=== PATIENT | female | born 1960 | race Caucasian/White ===

== ENCOUNTER 2017-02-23 09:55 | Emergency (ER) | payer BC ==
[2017-02-23 10:01] VITALS: BP 135/78; PULSE 73; RESP 16; TEMP 97.1
--- NOTE | 2017-02-23 10:29 | ED ---
General Adult HPI - General Chief complaint: Neuro Symptoms/Deficit Stated complaint: FACE TINGLING Time Seen by Provider: 02/23/17 10:14 Source: patient Mode of arrival: ambulatory Limitations: no limitations - History of Present Illness Initial comments: 86-year-old white female presents complaining of some bilateral facial numbness and tingling. She states that it came on this morning. She feels as though she has a head cold. She's had some congestion in her years. She has had some mild stiffness in her neck. She denies any nasal drainage, sore throat, ear pain, fever, or chills. She denies any other neurologic symptoms such as problems with walking, problems with talking, vision problems, weakness, or extremity numbness. She states that she watches her grandchild and they have been sick recently and thinks she may have caught something. She has had a mild headache over the last couple of days which is diffuse in nature. She denies any previous similar incidents. No other complaints or modifying factors. - Related Data Home Medications Medication Instructions Recorded Confirmed Venlafaxine HCl ER [Effexor Xr] 75 mg PO DAILY 01/16/15 01/16/15 Previous Rx's Medication Instructions Recorded Amoxicillin 500 mg PO Q8H #30 capsule 02/23/17 Allergies Allergy/AdvReac Type Severity Reaction Status Date / Time No Known Allergies Allergy Verified 02/23/17 10:01 Review of Systems ROS Statement: Those systems with pertinent positive or pertinent negative responses have been documented in the HPI. ROS Other: All systems not noted in ROS Statement are negative. Past Medical History Past Medical History: No Reported History History of Any Multi-Drug Resistant Organisms: None Reported Past Surgical History: No Surgical Hx Reported Past Psychological History: Anxiety Smoking Status: Current every day smoker Past Alcohol Use History: Occasional Past Drug Use History: None Reported General Exam - General Exam Comments Initial Comments: GENERAL: The patient is well nourished and well hydrated. VITAL SIGNS: Heart rate, blood pressure, respiratory rate reviewed as recorded in nurse's notes. EYES: Pupils are round and reactive. Extraocular movements are intact. No conjunctival / lid redness or swelling. ENT: No external evidence of injury, swelling, or ecchymosis. Airway is patent. Throat is clear. Tympanic membranes are clear. NECK: Nontender. No swelling or evidence of injury. No subcutaneous emphysema. Trachea is midline. No thyroid mass. HEART: Regular rate and rhythm. Good peripheral pulses. LUNGS/CHEST: Breath sounds clear and equal bilaterally. No rales, rhonchi, or wheezes. No ecchymosis, subcutaneous emphysema, or tenderness. ABDOMEN: Abdomen soft without tenderness. No palpable masses or organomegaly. No peritoneal signs. No abdominal wall swelling or ecchymosis. EXTREMITIES: No extremity tenderness. Normal muscle tone and function. No thoracolumbar tenderness. NEUROLOGIC: There is some subjective numbness throughout the face bilaterally. Cranial nerve exam reveals face is symmetrical, tongue is midline, speech is clear. No gross sensory or motor deficits otherwise noted. SKIN: No abrasions or ecchymosis is noted. No induration or masses noted. PSYCHIATRIC: Alert and oriented. Appropriate behavior and judgment. Limitations: no limitations Course Vital Signs 02/23/17 09:59 Temperature 97.1 F L Pulse Rate 73 Respiratory 16 Rate Blood Pressure 135/78 O2 Sat by Pulse 98 Oximetry Medical Decision Making - Medical Decision Making The patient is seen and examined. She does have somewhat nebulous symptoms. The exact cause is not definitively determined. She is offered full workup including computed tomography scan, IV, IV medications, and laboratory evaluation. She refuses these treatments and workup. She would prefer to be treated for possible sinusitis. She, however, is agreeable to return if her symptoms do not improve or if they worsen in the next couple of days. She leaves in no identifiable distress. Risks and benefits of her decision are discussed in detail. Return parameters are discussed. Disposition Clinical Impression: Paresthesia, Sinusitis Disposition: HOME SELF-CARE Condition: Good Instructions: Paresthesia (ED), Sinusitis (ED) Additional Instructions: The also may take Mucinex DM [id number] medication. Prescriptions: Amoxicillin 500 mg PO Q8H #30 capsule Referrals: Daren Peralta DO [Primary Care Provider] - 1-2 days Time of Disposition: 10:28
== END 2017-02-23 10:52 | disposition home or self-care (01) ==
LOC: EC 09:55
DX: R20.2 Paresthesia of skin (principal); J32.9 Chronic sinusitis, unspecified; F41.9 Anxiety disorder, unspecified; F17.200 Nicotine dependence, unspecified, uncomplicated; Z79.899 Other long term (current) drug therapy
CPT/HCPCS: 99283

== ENCOUNTER → 2018-10-12 | Outpatient (CLI) | payer BC ==
--- NOTE | 2018-10-12 15:45 | XR ---
EXAMINATION TYPE: XR chest 2V DATE OF EXAM: 10/12/2018 COMPARISON: Prior chest x-ray 01/16/2015 HISTORY: Cough, tobacco abuse TECHNIQUE: Frontal and lateral views of the chest are obtained. FINDINGS: There is abnormal density present in the right middle lobe not seen on prior exam which is below appreciated measuring approximately 4cm in size. There is a spinal curvature present. Prominen t lung volumes suggest underlying COPD. Cardiomediastinal silhouette, pulmonary vascular and tyesha are stable. No pneumothorax or pleural effusion. IMPRESSION: Mass density right middle lobe, recommend chest CT. A Yellow level critical message alert has been initiated for Daren Peralta DO via the [employer] Critical Results System on 10/12/2018 3:42 PM. This message alert has been sent to Daren Peralta DO via the preferences provided by the clinician for the receipt of Radiology Critical Findings. Message ID [id number].
== END | disposition home or self-care (01) ==
LOC: RADXRMAIN 11:17
PROVIDERS: ATTEND Family Medicine
DX: R91.8 Other nonspecific abnormal finding of lung field (principal); F17.210 Nicotine dependence, cigarettes, uncomplicated
CPT/HCPCS: 71046

== ENCOUNTER → 2018-10-18 | Outpatient (CLI) | payer BC ==
--- NOTE | 2018-10-18 08:43 | CT ---
EXAMINATION TYPE: CT chest w con DATE OF EXAM: 10/18/2018 COMPARISON: Radiograph 10/12/2018 HISTORY: 58-year-old female incidental Spot on lung. Right lung mass. TECHNIQUE: Contiguous axial scanning of the chest after the administration of 100 mL of Isovue 300. Coronal/sagittal reconstructions performed. CT DLP: 340.1mGycm. Automatic exposure control utilized for a dose reduction. FINDINGS: Heart normal size without pericardial effusion. Coronary vessel calcifications are present. Aorta normal caliber with conventional arch vessel branching anatomy. Prominent right hilar lymph nodes measuring up to 9 mm and prominent right tracheobronchial angle lym ph node measuring 1 cm. There is moderate centrilobular emphysema. Tiny calcified granuloma peripheral right upper lobe axial image 21. Suspect additional tiny 2 mm granuloma anterior right upper lobe axial image 24. Anterior right midlung 3 mm pulmonary nodule axial image 31. Additional scattered calcified granulomas are pre sent, for example, right lower lobe axial image 45. Masslike area of consolidation is confirmed involving the right middle lobe abutting the pleural surf ani. This measures 4.7 x 3.4 cm with some surrounding groundglass. No pleural effusion. Visualized upper abdomen shows nonspecific subcentimeter hypodensity inferior right liver lobe too sm all for accurate CT characterization, probable cyst. Mild diffuse low-density thickening of the left adrenal gland without discrete nodularity. Endplate spondylosis mid to lower thoracic spine with slight dextroconvex scoliosis. IMPRESSION: 1. COPD with moderate emphysema. 2. Masslike area of consolidation confirmed in the right middle lobe measuring 4.7 x 3.4 cm. There is surrounding groundglass density. Findings may represent pneumonia. Careful clinical correlation is r ecommended. Follow-up in one month to ensure gradual resolution with treatment. If the finding persis ts, underlying lung cancer should be excluded as low-grade adenocarcinoma can have a similar appearan ce. 3. Some borderline-sized right hilar and right tracheobronchial angle lymph nodes measuring up to 1 c m.
== END | disposition home or self-care (01) ==
LOC: RADCTMAIN 06:49
PROVIDERS: ATTEND Family Medicine
DX: J43.9 Emphysema, unspecified (principal); R91.8 Other nonspecific abnormal finding of lung field; J98.4 Other disorders of lung
CPT/HCPCS: 71260; Q9967

== ENCOUNTER → 2018-11-25 | Outpatient (CLI) | payer BC ==
--- NOTE | 2018-11-26 11:01 | MM ---
Reason for exam: screening (asymptomatic). History: Patient is postmenopausal. Took hormonal contraceptives for 3 years. Physical Findings: A clinical breast exam by your physician is recommended on an annual basis and results should be correlated with mammographic findings. MG Screening Mammo w CAD Bilateral CC and MLO view(s) were taken. No prior studies available for comparison. The breast tissue is heterogeneously dense. This may lower the sensitivity of mammography. No suspicious abnormality in the left breast. Focal asymmetry right upper outer quadrant 7-8cm from nipple. ASSESSMENT: Incomplete: need additional imaging evaluation, BI-RAD 0 RECOMMENDATION: Special view mammogram of the right breast. If lesion persists on supplemental views, image directed ultrasound is recommended. [facility] will attempt to contact patient to return for supplemental views and ultrasound if indicated.
== END | disposition home or self-care (01) ==
LOC: RADMAMWWP 07:38
PROVIDERS: ATTEND Family Medicine
DX: Z12.31 Encounter for screening mammogram for malignant neoplasm of breast (principal)
CPT/HCPCS: 77067

== ENCOUNTER → 2018-11-29 | Outpatient (CLI) | payer BC ==
--- NOTE | 2018-11-29 10:57 | MM ---
Reason for exam: additional evaluation requested from abnormal screening. Last mammogram was performed less than 1 month ago. History: Patient is postmenopausal. Took hormonal contraceptives for 3 years. Physical Findings: Nurse did not find any significant physical abnormalities on exam. MG 3D Work Up W/Cad RT Spot compression CC, spot compression MLO, and LM view(s) were taken of the right breast. Prior study comparison: November 25, 2018, bilateral MG screening mammo w CAD. The breast tissue is heterogeneously dense. This may lower the sensitivity of mammography. There is no discrete abnormality no cystic or solid lesion seen right upper outer quadrant. These results were verbally communicated with the patient and result sheet given to the patient on 11/29/18. ASSESSMENT: Probably benign, BI-RAD 3 RECOMMENDATION: Follow-up diagnostic mammogram of the right breast in 6 months.
== END | disposition home or self-care (01) ==
LOC: RADMAMWWP 09:37
PROVIDERS: ATTEND Family Medicine
DX: R92.8 Other abnormal and inconclusive findings on diagnostic imaging of breast (principal)
CPT/HCPCS: 77061; 77065

== ENCOUNTER → 2020-07-19 | Outpatient (CLI) | payer BC ==
--- NOTE | 2020-07-23 09:23 | MM ---
Reason for exam: screening (asymptomatic). Last mammogram was performed 1 year and 8 months ago. History: Patient is postmenopausal. Took hormonal contraceptives for 3 years. Physical Findings: A clinical breast exam by your physician is recommended on an annual basis and results should be correlated with mammographic findings. MG 3D Screening Mammo W/Cad Bilateral CC and MLO view(s) were taken. Prior study comparison: November 29, 2018, right breast MG 3d work up w/cad RT. November 25, 2018, bilateral MG screening mammo w CAD. There are scattered fibroglandular densities. Finding: There are typically benign skin calcifications in both breasts. No significant changes in finding since November 29, 2018 and November 25, 2018. ASSESSMENT: Benign, BI-RAD 2 RECOMMENDATION: Routine screening mammogram of both breasts in 1 year.
== END | disposition home or self-care (01) ==
LOC: RADMAMWWP 16:06
PROVIDERS: ATTEND Family Medicine
DX: Z12.31 Encounter for screening mammogram for malignant neoplasm of breast (principal)
CPT/HCPCS: 77063; 77067

== ENCOUNTER 2021-09-08 13:56 | Emergency (ER) | payer BC ==
--- NOTE | 2021-09-08 14:44 | XR ---
EXAMINATION TYPE: XR knee complete RT DATE OF EXAM: 09/08/2021 CLINICAL HISTORY: pain. TECHNIQUE: Frontal, lateral and oblique images of the right knee are obtained. COMPARISON: None FINDINGS: There is no acute fracture/dislocation evident. There is minimal medial compartment and l ateral compartment osteoarthritic spurring. The joint spaces appear within normal limits. Normal oss eous mineralization. The overlying soft tissue appears unremarkable. IMPRESSION: No acute fracture or dislocation in the right knee.
[2021-09-08 15:11] VITALS: BP 140/81; PULSE 67; RESP 20
[2021-09-08] MEDS ORDERED: ACET/COD 300 MG/30 MG STARTER PACK 6 TAB BTL PO STA (15:33)
--- NOTE | 2021-09-08 15:33 | ED ---
General Adult HPI - General Chief complaint: Extremity Injury, Upper Stated complaint: Rt Knee Dislocation Time Seen by Provider: 09/08/21 14:10 Source: patient, RN notes reviewed Mode of arrival: EMS Limitations: no limitations - History of Present Illness Initial comments: 60-year-old female presents emergency Department chief complaint of knee pain. Patient states that she went to step sideways up onto the tractor when her knee pop. She states she's had this happen several times in the past states that she usually pops again feels better but states she has severe pain now. Patient complains of pain on the lateral portion her knee. States it feels very weak, pain with certain movements. No paresthesias no other injuries. - Related Data Home Medications Medication Instructions Recorded Confirmed No Known Home Medications 09/08/21 09/08/21 Allergies Allergy/AdvReac Type Severity Reaction Status Date / Time No Known Allergies Allergy Verified 09/08/21 15:12 Review of Systems ROS Statement: Those systems with pertinent positive or pertinent negative responses have been documented in the HPI. ROS Other: All systems not noted in ROS Statement are negative. Past Medical History Past Medical History: No Reported History History of Any Multi-Drug Resistant Organisms: None Reported Past Surgical History: No Surgical Hx Reported Past Psychological History: Anxiety Past Alcohol Use History: Occasional Past Drug Use History: None Reported General Exam Limitations: no limitations General appearance: alert, in no apparent distress Head exam: Present: atraumatic, normocephalic, normal inspection Eye exam: Present: normal appearance, PERRL, EOMI. Absent: scleral icterus, conjunctival injection, periorbital swelling Respiratory exam: Present: normal lung sounds bilaterally. Absent: respiratory distress, wheezes, rales, rhonchi, stridor Cardiovascular Exam: Present: regular rate, normal rhythm, normal heart sounds. Absent: systolic murmur, diastolic murmur, rubs, gallop, clicks Extremities exam: Present: other (Right knee there is tenderness in the lateral to posterior aspect, no obvious deformity neurovascular intact, no erythema swelling pain with valgus) Course Vital Signs 09/08/21 14:00 Pulse Rate 67 Respiratory 20 Rate Blood Pressure 140/81 O2 Sat by Pulse 100 Oximetry Medical Decision Making - Medical Decision Making Patient x-rays unremarkable. This most is related to ligamentous injury or possible meniscus injury. Patient will be follow-up with orthopedics return parameters were discussed. Disposition Clinical Impression: Right knee sprain Disposition: HOME SELF-CARE Condition: Stable Instructions (If sedation given, give patient instructions): Knee Sprain (DC) Additional Instructions: Please return to the Emergency Department if symptoms worsen or any other concerns. Is patient prescribed a controlled substance at d/c from ED?: No Referrals: Daren Peralta DO [Primary Care Provider] - 1-2 days Yash Davidson DO [Doctor of Osteopathic Medicine] - 1-2 days Time of Disposition: 15:33
== END 2021-09-08 16:29 | disposition home or self-care (01) ==
LOC: EC 13:56
DX: S83.91XA Sprain of unspecified site of right knee, initial encounter (principal); X50.1XXA Overexertion from prolonged static or awkward postures, initial encounter
CPT/HCPCS: 99283

== ENCOUNTER → 2022-07-01 | Outpatient (CLI) | payer BC ==
--- NOTE | 2022-07-01 15:42 | XR ---
Cervical spine Limited HISTORY: Pain, trauma 5 views of the cervical spine There is spondylosis at C5-6 and C6-7, loss of disc height is associated levels. C7-T1 not well seen. Prevertebral soft tissues are normal. Cervical vertebral bodies show preserved height and alignment. Odontoid view is limited. There are changes of facet arthropathy. IMPRESSION: Degenerative disc disease and facet arthropathy. No fracture or dislocation.
== END | disposition home or self-care (01) ==
LOC: RADXRMAIN 11:31
PROVIDERS: ATTEND Nurse Practitioner Family
DX: M50.323 Other cervical disc degeneration at C6-C7 level (principal); M47.812 Spondylosis without myelopathy or radiculopathy, cervical region
CPT/HCPCS: 72040

== ENCOUNTER → 2022-07-01 | Outpatient (CLI) | payer BC ==
--- NOTE | 2022-07-03 08:27 | MM ---
Reason for Exam: Screening (asymptomatic). Last mammogram was performed 1 year(s) and 11 month(s) ago. Patient History: Menarche at age 14. First Full-Term at age 22. Postmenopausal. Patient used Hormonal Contraceptives for 3 years. Risk Values: Hannah 5 year model risk: 1.3%. NCI Lifetime model risk: 6.6%. Prior Study Comparison: 11/25/2018 Bilateral Screening Mammogram, [facility]. 11/29/2018 Right Diagnostic Mammogram, [facility]. 07/19/2020 Bilateral Screening Mammogram, [facility]. Tissue Density: There are scattered fibroglandular densities. Findings: Analyzed By CAD. Pattern appears symmetrical and stable. Chronic nodularity is in the upper outer aspects of the bilateral breasts. Benign calcifications present. No suspicious groups of microcalcifications, spiculated or lobular masses, architectural distortion or other secondary signs of malignancy are mammographically apparent. Overall Assessment: Benign, BI-RAD 2 Management: Screening Mammogram of both breasts in 1 year. A negative mammogram report should not preclude additional follow up of suspicious palpable abnormalities. Patient should continue monthly self breast exam. A clinical breast exam by your physician is recommended on an annual basis and results should be correlated with mammographic findings. Electronically signed and approved by: Willian James D.O. Radiologis
== END | disposition home or self-care (01) ==
LOC: RADMAMWWP 12:32
PROVIDERS: ATTEND Family Medicine
DX: Z12.31 Encounter for screening mammogram for malignant neoplasm of breast (principal); Z78.0 Asymptomatic menopausal state
CPT/HCPCS: 77063; 77067

== ENCOUNTER 2022-10-09 07:28 | Emergency (ER) | payer BC ==
[2022-10-09 07:53] VITALS: RESP 18
--- NOTE | 2022-10-09 10:31 | XR ---
EXAMINATION TYPE: XR chest 2V DATE OF EXAM: 10/09/2022 10:25 AM COMPARISON: Chest radiographs from 10/12/2018, CT chest 10/18/2018 TECHNIQUE: XR chest 2V Frontal and lateral views of the chest. CLINICAL INDICATION:Female, 62 years old with history of Difficulty breathing ; FINDINGS: Lungs/Pleura: No pneumothorax or pleural effusion. Patchy lingular airspace opacity. Pulmonary vascularity: Unremarkable. Heart/mediastinum: Cardiomediastinal silhouette is unremarkable. Musculoskeletal: No acute osseous pathology. Dextrocurvature of the thoracic spine. IMPRESSION: Lingular airspace opacity which may represent atelectasis versus infiltrate in the appropriate clinic al setting.
[2022-10-09 11:01] LABS: Appearance,Urine Clear (Clear); Bilirubin,Urine Negative (Negative); Blood,Urine Negative (Negative); Color,Urine Yellow; Glucose,Urine (UA) Negative (Negative); Ketones,Urine Negative (Negative); Leukocyte Esterase,Urine Negative (Negative); Nitrite,Urine Negative (Negative); Protein,Urine Negative (Negative); Urobilinogen,Urine <2.0 mg/dL (<2.0)
[2022-10-09 11:04] LABS: Basophils % (A) 0 %; Eosinophils % (A) 0 %; HCT 36.8 % (34.0-46.0); HGB 12.5 gm/dL (11.4-16.0); Lymphocytes # (A) 1.5 k/uL (1.0-4.8); Lymphocytes % (A) 12 %; MCH 30.3 pg (25.0-35.0); MCV 89.1 fL (80.0-100.0); Mean Platelet Volume 7.9; Monocytes # (A) 0.7 k/uL (0-1.0); Monocytes % (A) 6 %; Neutrophils # (A) 9.8 k/uL (1.3-7.7); Neutrophils % (A) 80 %; Platelet Count 298 k/uL (150-450); RBC 4.12 m/uL (3.80-5.40); RDW 12.9 % (11.5-15.5); WBC 12.2 k/uL (3.8-10.6)
[2022-10-09 11:16] LABS: ALT 16 U/L (4-34); AST 21 U/L (14-36); African American GFR (CKD) >90 (>60 ml/min/1.73 sqM); Albumin 3.9 g/dL (3.5-5.0); Alkaline Phosphatase 72 U/L (38-126); Anion Gap 6 mmol/L; Blood Urea Nitrogen 10 mg/dL (7-17); Calcium 9.1 mg/dL (8.4-10.2); Carbon Dioxide 28 mmol/L (22-30); Chloride 106 mmol/L (98-107); Glucose 97 mg/dL (74-99); Non-African American GFR(CKD) >90 (>60 ml/min/1.73 sqM); Potassium 4.3 mmol/L (3.5-5.1); Sodium 140 mmol/L (137-145); Total Bilirubin 0.6 mg/dL (0.2-1.3); Total Protein 6.5 g/dL (6.3-8.2)
--- NOTE | 2022-10-09 12:10 | CT ---
EXAMINATION TYPE: CT chest angio for PE CT DLP: 380.9 mGycm, Automated exposure control for dose reduction was used. DATE OF EXAM: 10/09/2022 12:00 PM COMPARISON: Chest radiograph 10/09/[address] chest 10/18/2018. CLINICAL INDICATION:Female, 62 years old with history of Dyspnea elevated d-dimer; pe TECHNIQUE/CONTRAST: CTA scan of the thorax is performed with IV Contrast, patient injected with 60 mL of Isovue 370, pulm onary embolism protocol. MIP images are created and reviewed. FINDINGS: Pulmonary Artery: There is no evidence for a filling defect within the pulmonary vasculature to sugge st acute pulmonary embolism. The pulmonary artery is of normal size. Lungs/Pleura: No pneumothorax or pleural effusion. Mild centrilobular emphysematous changes. Patchy c onsolidation within the medial aspect of the left lower lobe. Scattered calcified granulomas. Airway: Large airways are patent. Heart: Heart is within normal limits for size.. Vasculature: No evidence of aortic aneurysm. Mediastinum: Enlarged AP window lymph node measuring up to 1.1 cm. Musculoskeletal: No acute osseous abnormalities. Dextrocurvature of the thoracic spine. Soft Tissues: Unremarkable. Lower neck: No significant findings. Upper Abdomen: A couple of subcentimeter hypodense foci within the right hepatic lobe which are too s mall to characterize.. IMPRESSION: 1. No evidence of pulmonary embolism. 2. Patchy consolidation within the medial aspect of the left lower lobe concerning for pneumonia. 3. Reactive mediastinal lymphadenopathy likely secondary to #2. 4. Mild COPD changes.
[2022-10-09] MEDS ORDERED: cefTRIAXone IN SWFI 1,000 MG/10 ML SYRINGE IVP STA (12:15)
--- NOTE | 2022-10-09 12:22 | ED ---
General Adult HPI - General Chief complaint: Weakness Stated complaint: Weakness Time Seen by Provider: 10/09/22 07:32 Source: patient, family, RN notes reviewed, old records reviewed Mode of arrival: ambulatory Limitations: no limitations - History of Present Illness Initial comments: This is a 62-year-old female who presents emergency Department complaining of difficulty breathing starting on Thursday. Patient is symptoms of gotten progressively worse. Patient states she's had some sharp left-sided chest pain as well. Patient states she didn't know she had a fever to she got here. Patient denies any chills. Patient denies any palpitations. Patient denies any abdominal pain patient denies nausea vomiting diarrhea. Patient denies any lightheadedness dizziness or near syncopal episode. - Related Data Previous Rx's Medication Instructions Recorded Azithromycin [Zithromax Tri-Avila (3 500 mg PO DAILY 3 Days #3 tab 10/09/22 tabs)] Allergies Allergy/AdvReac Type Severity Reaction Status Date / Time No Known Allergies Allergy Verified 10/09/22 07:52 Review of Systems ROS Statement: Those systems with pertinent positive or pertinent negative responses have been documented in the HPI. ROS Other: All systems not noted in ROS Statement are negative. Past Medical History Past Medical History: No Reported History History of Any Multi-Drug Resistant Organisms: None Reported Past Surgical History: No Surgical Hx Reported Past Psychological History: Anxiety Smoking Status: Current every day smoker Past Alcohol Use History: Occasional Past Drug Use History: None Reported General Exam - General Exam Comments Initial Comments: GENERAL: Patient is well-developed and well-nourished. Patient is nontoxic and well- hydrated and is in mild distress. ENT: Neck is soft and supple. No significant lymphadenopathy is noted. Oropharynx is clear. Moist mucous membranes. Neck has full range of motion without eliciting any pain. EYES: The sclera were anicteric and conjunctiva were pink and moist. Extraocular movements were intact and pupils were equal round and reactive to light. Eyelids were unremarkable. PULMONARY: Unlabored respirations. Good breath sounds bilaterally. No audible rales rhonchi or wheezing was noted. CARDIOVASCULAR: There is a regular rate and rhythm without any murmurs gallops or rubs. ABDOMEN: Soft and nontender with normal bowel sounds. SKIN: Skin is clear with no lesions or rashes and otherwise unremarkable. NEUROLOGIC: Patient is alert and oriented x3. Cranial nerves II through XII are grossly intact. Motor and sensory are also intact. Normal speech, volume and content. Symmetrical smile. MUSCULOSKELETAL: Normal extremities with adequate strength and full range of motion. No lower extremity swelling or edema. No calf tenderness. LYMPHATICS: No significant lymphadenopathy is noted PSYCHIATRIC: Normal psychiatric evaluation. Limitations: no limitations Course Vital Signs 10/09/22 10/09/22 10/09/22 07:49 12:08 12:47 Temperature 100 F H 99.2 F 99.3 F Pulse Rate 90 70 88 Respiratory 18 18 18 Rate Blood Pressure 128/85 147/71 137/65 O2 Sat by Pulse 96 95 96 Oximetry Procedures - [place] Protocol (Time Out) Nurse: Manjula Pearce Medical Decision Making - Medical Decision Making Was pt. sent in by a medical professional or institution (, PA, CATARACT LENS GENERATOR, urgent care, hospital, or [place] health care facility...) When possible be specific @ -No Did you speak to anyone other than the patient for history (EMS, parent, family, police, friend...)? What history was obtained from this source @ -No Did you review nursing and triage notes (agree or disagree)? Why? @ -I reviewed and agree with nursing and triage notes Were old charts reviewed (outside hosp., previous admission, EMS record, old EKG, old radiological studies, urgent care reports/EKG's, [place] health care facility records)? Report findings @ -No old charts were reviewed Differential Diagnosis (chest pain, altered mental status, abdominal pain women, abdominal pain men, vaginal bleeding, weakness, fever, dyspnea, syncope, headache, dizziness, GI bleed, back pain, seizure, CVA, palpatations, mental health)? @ -Differential Dyspnea: Coronary syndrome, arrhythmia, tamponade, asthma, COPD, pulmonary embolism, pneumonia, pneumothorax, pulmonary effusion, anaphylaxis, diabetic ketoacidosis, flailed chest, pulmonary contusion, diaphragmatic rupture, anemia, neuromuscular, this is not meant to be an all-inclusive list. EKG interpreted by me (3pts min.). @ -None X-rays interpreted by me (1pt min.). @ -I interpreted the chest x-ray shows a left lower lobe pneumonia CT interpreted by me (1pt min.). @ -CT of the chest was interpreted by myself no pulmonary embolism is noted but the infiltrate in the left lower lobe is noted U/S interpreted by me (1pt. min.). @ -None done What testing was considered but not performed or refused? (CT, X-rays, U/S, labs)? Why? @ -None What meds were considered but not given or refused? Why? @ -None Did you discuss the management of the patient with other professionals (professionals i.e. DrMartín, PA, CATARACT LENS GENERATOR, lab, RT, psych nurse, neonatal social worker, acute care physician, teacher, boat officer, clinical case manager)? Give summary @ -No Was smoking cessation discussed for >3mins.? @ -No Was critical care preformed (if so, how long)? @ -No Were there social determinants of health that impacted care today? How? (Homelessness, low income, unemployed, alcoholism, drug addiction, transportation, low edu. Level, literacy, decrease access to med. care, care home, rehab)? @ -No Was there de-escalation of care discussed even if they declined (Discuss DNR or withdrawal of care, Hospice)? DNR status @ -No What co-morbidities impacted this encounter? (DM, HTN, Smoking, COPD, CAD, Cancer, CVA, ARF, Chemo, Hep., AIDS, mental health diagnosis, sleep apnea, morbid obesity)? @ -None Was patient admitted / discharged? Hospital course, mention meds given and route, prescriptions, significant lab abnormalities, going to OR and other pertinent info. @ -Patient be discharged home on antibiotics for the pneumonia Undiagnosed new problem with uncertain prognosis? @ -No Drug Therapy requiring intensive monitoring for toxicity (Heparin, Nitro, Insulin, Cardizem)? @ -No Were any procedures done? @ -No Diagnosis/symptom? @ -Pneumonia Acute, or Chronic, or Acute on Chronic? @ -Acute Uncomplicated (without systemic symptoms) or Complicated (systemic symptoms)? @ -Uncomplicated Side effects of treatment? @ -No Exacerbation, Progression, or Severe Exacerbation? @ -No Poses a threat to life or bodily function? How? (Chest pain, [place], [place], pneumonia, PE, COPD, DKA, ARF, appy, cholecystitis, CVA, Diverticulitis, Homicidal, Suicidal, threat to staff... and all critical care pts) @ -No - Lab Data Result diagrams: 10/09/22 10:39 10/09/22 10:39 Lab Results 10/09/22 10/09/22 10/09/22 Range/Units 08:34 10:39 10:39 WBC 12.2 H (3.8-10.6) k/uL RBC 4.12 (3.80-5.40) m/uL Hgb 12.5 (11.4-16.0) gm/dL Hct 36.8 (34.0-46.0) % MCV 89.1 (80.0-100.0) fL MCH 30.3 (25.0-35.0) pg MCHC 34.0 (31.0-37.0) g/dL RDW 12.9 (11.5-15.5) % Plt Count 298 (150-450) k/uL MPV 7.9 Neutrophils % 80 % Lymphocytes % 12 % Monocytes % 6 % Eosinophils % 0 % Basophils % 0 % Neutrophils # 9.8 H (1.3-7.7) k/uL Lymphocytes # 1.5 (1.0-4.8) k/uL Monocytes # 0.7 (0-1.0) k/uL Eosinophils # 0.0 (0-0.7) k/uL Basophils # 0.0 (0-0.2) k/uL D-Dimer 0.94 H (<0.60) mg/L FEU Sodium (137-145) mmol/L Potassium (3.5-5.1) mmol/L Chloride (98-107) mmol/L Carbon Dioxide (22-30) mmol/L Anion Gap mmol/L BUN (7-17) mg/dL Creatinine (0.52-1.04) mg/dL Est GFR (CKD-EPI)AfAm (>60 ml/min/1.73 sqM) Est GFR (CKD-EPI)NonAf (>60 ml/min/1.73 sqM) Glucose (74-99) mg/dL Calcium (8.4-10.2) mg/dL Total Bilirubin (0.2-1.3) mg/dL AST (14-36) U/L ALT (4-34) U/L Alkaline Phosphatase (38-126) U/L Total Protein (6.3-8.2) g/dL Albumin (3.5-5.0) g/dL TSH (0.465-4.680) mIU/L Urine Color Urine Appearance (Clear) Urine pH (5.0-8.0) Ur Specific [place] (1.001-1.035) Urine Protein (Negative) Urine Glucose (UA) (Negative) Urine Ketones (Negative) Urine Blood (Negative) Urine Nitrite (Negative) Urine Bilirubin (Negative) Urine Urobilinogen (<2.0) mg/dL Ur Leukocyte Esterase (Negative) Influenza Type A (PCR) Not Detected (Not Detectd) Influenza Type B (PCR) Not Detected (Not Detectd) RSV (PCR) Not Detected (Not Detectd) SARS-CoV-2 (PCR) Not Detected (Not Detectd) 10/09/22 10/09/22 Range/Units 10:39 10:39 WBC (3.8-10.6) k/uL RBC (3.80-5.40) m/uL Hgb (11.4-16.0) gm/dL Hct (34.0-46.0) % MCV (80.0-100.0) fL MCH (25.0-35.0) pg MCHC (31.0-37.0) g/dL RDW (11.5-15.5) % Plt Count (150-450) k/uL MPV Neutrophils % % Lymphocytes % % Monocytes % % Eosinophils % % Basophils % % Neutrophils # (1.3-7.7) k/uL Lymphocytes # (1.0-4.8) k/uL Monocytes # (0-1.0) k/uL Eosinophils # (0-0.7) k/uL Basophils # (0-0.2) k/uL D-Dimer (<0.60) mg/L FEU Sodium 140 (137-145) mmol/L Potassium 4.3 (3.5-5.1) mmol/L Chloride 106 (98-107) mmol/L Carbon Dioxide 28 (22-30) mmol/L Anion Gap 6 mmol/L BUN 10 (7-17) mg/dL Creatinine 0.62 (0.52-1.04) mg/dL Est GFR (CKD-EPI)AfAm >90 (>60 ml/min/1.73 sqM) Est GFR (CKD-EPI)NonAf >90 (>60 ml/min/1.73 sqM) Glucose 97 (74-99) mg/dL Calcium 9.1 (8.4-10.2) mg/dL Total Bilirubin 0.6 (0.2-1.3) mg/dL AST 21 (14-36) U/L ALT 16 (4-34) U/L Alkaline Phosphatase 72 (38-126) U/L Total Protein 6.5 (6.3-8.2) g/dL Albumin 3.9 (3.5-5.0) g/dL TSH 1.100 (0.465-4.680) mIU/L Urine Color Yellow Urine Appearance Clear (Clear) Urine pH 6.0 (5.0-8.0) Ur Specific [place] 1.010 (1.001-1.035) Urine Protein Negative (Negative) Urine Glucose (UA) Negative (Negative) Urine Ketones Negative (Negative) Urine Blood Negative (Negative) Urine Nitrite Negative (Negative) Urine Bilirubin Negative (Negative) Urine Urobilinogen <2.0 (<2.0) mg/dL Ur Leukocyte Esterase Negative (Negative) Influenza Type A (PCR) (Not Detectd) Influenza Type B (PCR) (Not Detectd) RSV (PCR) (Not Detectd) SARS-CoV-2 (PCR) (Not Detectd) Disposition Clinical Impression: Pneumonia Disposition: HOME SELF-CARE Condition: Good Prescriptions: Azithromycin [Zithromax Tri-Avila (3 tabs)] 500 mg PO DAILY 3 Days #3 tab Is patient prescribed a controlled substance at d/c from ED?: No Referrals: Daren Peralta DO [Primary Care Provider] - 1-2 days Time of Disposition: 12:00
[2022-10-09 12:51] VITALS: BP 137/65; PULSE 88; TEMP 99.3
== END 2022-10-09 13:03 | disposition home or self-care (01) ==
LOC: EC 07:28
DX: J18.9 Pneumonia, unspecified organism (principal); F41.9 Anxiety disorder, unspecified; F17.200 Nicotine dependence, unspecified, uncomplicated; Z20.822 Contact with and (suspected) exposure to COVID-19
CPT/HCPCS: 36415; 85379; 80053; 84443; 85025; 81003; 87636; 71046; 71275; 99285; 96374; J0696; Q9967

== ENCOUNTER → 2023-08-24 | Outpatient (CLI) | payer BC ==
--- NOTE | 2023-08-24 09:09 | MM ---
Reason for Exam: Screening (asymptomatic). Last mammogram was performed 1 year(s) and 2 month(s) ago. Patient History: Menarche at age 14. First Full-Term at age 22. Postmenopausal. Patient used Hormonal Contraceptives for 3 years. Risk Values: Hannah 5 year model risk: 1.3%. NCI Lifetime model risk: 6.4%. Prior Study Comparison: 11/29/2018 Right Diagnostic Mammogram, [facility]. 07/19/2020 Bilateral Screening Mammogram, [facility]. 07/01/2022 Bilateral MG 3D screening mammo w/cad, [facility]. Tissue Density: The breast tissue is almost entirely fat. Findings: Analyzed By CAD. There is no suspicious group of microcalcifications or new suspicious mass. Overall Assessment: Negative, BI-RAD 1 Management: Screening Mammogram of both breasts in [address] [facility] will attempt to contact patient to return for supplemental views and ultrasound if indicated. Patient should continue monthly self-breast exams. A clinical breast exam by your physician is recommended on an annual basis. This exam should not preclude additional follow-up of suspicious palpable abnormalities. Note on Hannah scores and lifetime risk: 1. A Hannah score greater than 3% is considered moderate risk. If this is the case, consider specialist referral to assess eligibility for a risk reducing agent. 2. If overall lifetime risk for the development of breast cancer is 20% or higher, the patient may qualify for future screening with alternating mammogram and breast MRI. Electronically signed and approved by: Nadir Cuenca DO
== END | disposition home or self-care (01) ==
LOC: RADMAMWWP 07:00
PROVIDERS: ATTEND Family Medicine
DX: Z12.31 Encounter for screening mammogram for malignant neoplasm of breast (principal); Z78.0 Asymptomatic menopausal state
CPT/HCPCS: 77063; 77067

== ENCOUNTER → 2024-10-26 | Outpatient (CLI) | payer BC ==
--- NOTE | 2024-10-26 17:07 | MM ---
Reason for Exam: Screening (asymptomatic). Last mammogram was performed 1 year(s) and 2 month(s) ago. Patient History: Menarche at age 14. First Full-Term at age 22. Postmenopausal. Patient used Hormonal Contraceptives for 3 years. Risk Values: Hannah 5 year model risk: 1.4%. NCI Lifetime model risk: 6.0%. Prior Study Comparison: 07/19/2020 Bilateral Screening Mammogram, [facility]. 07/01/2022 Bilateral MG 3D screening mammo w/cad, [facility]. 08/24/2023 Bilateral MG 3D screening mammo w/cad, [facility]. Tissue Density: There are scattered areas of fibroglandular density. Findings: Analyzed By CAD. There is no suspicious group of microcalcifications or new suspicious mass in either breast. Overall Assessment: Negative, BI-RAD 1 Management: Screening Mammogram of both breasts in 1 year. Patient should continue monthly self-breast exams. A clinical breast exam by your physician is recommended on an annual basis. This exam should not preclude additional follow-up of suspicious palpable abnormalities. Note on Hannah scores and lifetime risk: 1. A Hannah score greater than 3% is considered moderate risk. If this is the case, consider specialist referral to assess eligibility for a risk reducing agent. 2. If overall lifetime risk for the development of breast cancer is 20% or higher, the patient may qualify for future screening with alternating mammogram and breast MRI. [facility], , 10/26/2024 5:04 PM. Electronically signed and approved by: Sascha Fitch M.D. Radiologist
== END | disposition home or self-care (01) ==
LOC: RADMAMWWP 13:37
PROVIDERS: ATTEND Family Medicine
DX: Z12.31 Encounter for screening mammogram for malignant neoplasm of breast (principal); Z78.0 Asymptomatic menopausal state; R92.323 Mammographic fibroglandular density, bilateral breasts
CPT/HCPCS: 77063; 77067